=== PATIENT | female | born 1945 | race Caucasian/White ===

== ENCOUNTER 2022-09-14 17:46 | Emergency (ER) | payer MEDICARE, BC ==
[~2022-09-14] VITALS: Ht 154.9 cm; Wt 90.7 kg
--- NOTE | 2022-09-14 17:50 | NUR ---
Monik jackson in [facility] - 09/14/22 at 1839 by NADER Daughter: ARCELIA
--- NOTE | 2022-09-14 18:45 | NUR ---
pt to CT
[2022-09-14] MEDS ORDERED: LIDOCAINE 1%-EPI 1:100,000 20 ML VIAL ONE (19:28)
--- NOTE | 2022-09-14 20:03 | NUR ---
came back from CT face
[2022-09-14 20:31] LABS: POTASSIUM 4.1 mmol/L (3.5-5.1)
--- NOTE | 2022-09-14 20:32 | NUR ---
Called [facility] jessica, no Ophthalmology available.
[2022-09-14 20:36] LABS: HEMATOCRIT 41.2 % (31.2-41.9); MEAN CORPUSCULAR HEMOGLOBIN 33.5 uug (24.7-32.8); MEAN CORPUSCULAR VOLUME 100.4 fL (75.5-95.3); PLATELET COUNT (AUTO) 222 K/uL (179-408)
[2022-09-14 20:47] LABS: BILIRUBIN,DIRECT 0.1 mg/dL (0.0-0.2); BILIRUBIN,TOTAL 0.5 mg/dL (0.2-1.0); TOTAL PROTEIN, SERUM 7.4 g/dL (6.4-8.2)
--- NOTE | 2022-09-14 21:31 | NUR ---
Called [facility]. Spoke with Citlaly SCHWAB. Will fax papers
--- NOTE | 2022-09-14 21:44 | NUR ---
clinical summary faxed
--- NOTE | 2022-09-14 22:11 | NUR ---
[facility] called. Hospital is out of capacity
--- NOTE | 2022-09-14 22:25 | NUR ---
called Laina, no rehabilitation construction specialist available
[2022-09-14] MEDS ORDERED: ALPRAZOLAM 0.25 MG TABLET ONE (22:29)
--- NOTE | 2022-09-14 22:29 | NUR ---
Patient has been accepted by Dr Duglas Tai [facility] ER to ER transfer. call for report [phone]
[2022-09-14] MEDS ORDERED: ALPRAZOLAM 0.25 MG TABLET PO ONE (22:30)
--- NOTE | 2022-09-14 22:35 | NUR ---
Called [facility] ambulance. ETA 60-90 mins
--- NOTE | 2022-09-14 22:40 | NUR ---
report given to Krish SCHWAB - [facility]
[2022-09-14] MEDS ORDERED: ONDANSETRON ODT 4 MG TAB.RAPDIS ONE (23:08)
[2022-09-14] MEDS ORDERED: MORPHINE SULFATE 2 MG/1 ML DISP.SYRIN ONE (23:09)
[2022-09-14] MEDS ORDERED: ONDANSETRON ODT 4 MG TAB.RAPDIS SL ONE (23:15)
[2022-09-14] MEDS ORDERED: MORPHINE SULFATE 2 MG/1 ML DISP.SYRIN IM ONE (23:15)
[2022-09-14] MEDS ORDERED: CEFTAZIDIME 1 G in IV DEXTROSE 5% 50 ML IV ONE (23:15)
[2022-09-14] MEDS ORDERED: CEFTAZIDIME 1 G VIAL ONE (23:22)
--- NOTE | 2022-09-15 00:23 | NUR ---
called [facility] ambulance for ETA. 15 mins
[2022-09-15] MEDS ORDERED: MORPHINE SULFATE 2 MG/1 ML DISP.SYRIN ONE (00:29)
[2022-09-15] MEDS ORDERED: MORPHINE SULFATE 2 MG/1 ML DISP.SYRIN IV ONE (00:30)
--- NOTE | 2022-09-15 00:47 | NUR ---
[facility] ambulance [facility] at bedside for transport
--- NOTE | 2022-09-15 00:54 | NUR ---
Patient Tranfers to [facility] via [facility] ambulance Physician: Dr Ardon
== END 2022-09-15 01:00 | disposition short-term general hospital (02) ==
LOC: ER 17:53
DX: S05.31XA Ocular laceration without prolapse or loss of intraocular tissue, right eye, initial encounter (principal); S02.831A Fracture of medial orbital wall, right side, initial encounter for closed fracture; W01.190A Fall on same level from slipping, tripping and stumbling with subsequent striking against furniture, initial encounter; Y93.89 Activity, other specified; Y92.019 Unspecified place in single-family (private) house as the place of occurrence of the external cause; S01.81XA Laceration without foreign body of other part of head, initial encounter; Z20.822 Contact with and (suspected) exposure to COVID-19; M50.30 Other cervical disc degeneration, unspecified cervical region; H21.01 Hyphema, right eye; Z95.0 Presence of cardiac pacemaker
CPT/HCPCS: 99285; 12052; 70450; 96365; 96375; 87426; 80076; 80048; 85025; 85730; 36415; 93005; 70486; 72125; 96372; J0713; J3490; J2270 ×2; A4663; Q0162